=== PATIENT | female | born 1970 | race Caucasian/White ===

== ENCOUNTER → 2023-08-26 16:05 | Outpatient (REF) | payer OTHER, SELFPAY | LOC: WDC 16:05 | PROVIDERS: ATTENDING PHYSICIAN Obstetrics & Gynecology; FAMILY PHYSICIAN Family Medicine | DX: Z12.31 Encounter for screening mammogram for malignant neoplasm of breast (principal) | CPT/HCPCS: 77063; 77067 ==

== ENCOUNTER → 2024-01-26 13:00 | Outpatient (REF) | payer OTHER, SELFPAY | LOC: HWRAD 13:00 | PROVIDERS: ATTENDING PHYSICIAN Obstetrics & Gynecology; FAMILY PHYSICIAN Family Medicine | DX: N95.0 Postmenopausal bleeding (principal) | CPT/HCPCS: 76830; 76856 ==

== ENCOUNTER → 2024-02-01 08:42 | Outpatient (REF) | payer SELFPAY | LOC: HWRAD 08:42 | PROVIDERS: ATTENDING PHYSICIAN Internal Medicine Cardiovascular Disease; FAMILY PHYSICIAN Family Medicine | DX: E78.2 Mixed hyperlipidemia (principal) | CPT/HCPCS: 75571 ==

== ENCOUNTER 2024-02-22 06:27 | Day surgery (SDC) | payer OTHER, SELFPAY ==
[2024-02-18 11:10] LABS: % Basophils 0.4 % (0-2); % Eosinophils 1.1 % (0-6); % Immature Granulocytes 0.2 % (0-0.5); % Lymphocytes 34.6 % (20.5-51.1); % Monocytes 7.5 % (1.7-9.3); % Neutrophils 56.2 % (42.2-75.2); Absolute Eosinophils 0.1 10^3/uL (0-0.7); Absolute Monocytes 0.4 10^3/uL (0.1-0.6); Absolute Neutrophils 3.2 10^3/uL (1.4-6.5); Hematocrit 40.1 % (37.0-47.0); Hemoglobin 13.6 g/dL (12.0-16.0); Mean Corp Hgb Conc. 33.9 g/dL (33.0-37.0); Mean Corpuscular Hgb 32.8 pg (27.0-31.0); Mean Corpuscular Volume 96.6 fL (81.0-99.0); Mean Platelet Volume 10.8 fL (7.4-10.4); Nucleated Red Blood Cells % 0 %; Platelet Count 270 10^3/uL (130-400); Red Blood Cell Count 4.15 10^6/uL (4.20-5.40); Red Cell Dist. Width 12.1 % (11.5-14.5); White Blood Cell Count 5.6 10^3/uL (4.8-10.8)
[2024-02-18 11:22] LABS: APTT 28.2 Sec (23.4-35.0); INR 0.97; PT 12.9 Sec (11.4-14.6)
[2024-02-18 12:35] VITALS: BMI 22.8
[2024-02-22] VITALS (9 sets, daily range): BP systolic 95–141; BP diastolic 47–69; BMI 22.8
== END 2024-02-22 11:12 | disposition home or self-care (01) ==
LOC: SDS 06:27
PROVIDERS: ATTENDING PHYSICIAN Obstetrics & Gynecology; FAMILY PHYSICIAN Family Medicine
DX: N84.0 Polyp of corpus uteri (principal); N95.0 Postmenopausal bleeding
CPT/HCPCS: 58558; 88305; 36415; 85025; 85610; 85730; 87070

== ENCOUNTER → 2024-08-04 07:36 | Outpatient (REF) | payer OTHER, SELFPAY | LOC: RCS 07:36 | PROVIDERS: ATTENDING PHYSICIAN Internal Medicine Cardiovascular Disease; FAMILY PHYSICIAN Family Medicine | DX: R06.09 Other forms of dyspnea (principal) | CPT/HCPCS: 93017 ==

== ENCOUNTER → 2024-08-08 13:42 | Outpatient (REF) | payer OTHER, SELFPAY | LOC: HWRCS 13:42 | PROVIDERS: ATTENDING PHYSICIAN Internal Medicine Cardiovascular Disease; FAMILY PHYSICIAN Family Medicine | DX: R06.09 Other forms of dyspnea (principal) | CPT/HCPCS: 93306 ==

== ENCOUNTER → 2024-08-29 16:21 | Outpatient (REF) | payer OTHER, SELFPAY | LOC: WDC 16:21 | PROVIDERS: ATTENDING PHYSICIAN Obstetrics & Gynecology; FAMILY PHYSICIAN Family Medicine | DX: Z12.31 Encounter for screening mammogram for malignant neoplasm of breast (principal) | CPT/HCPCS: 77063; 77067 ==

== ENCOUNTER 2024-09-08 13:10 | Emergency (ER) | payer OTHER, SELFPAY ==
[2024-09-08 13:29] VITALS: BP 102/58
[2024-09-08 13:52] LABS: % Basophils 0.1 % (0-2); % Eosinophils 0.1 % (0-6); % Immature Granulocytes 0.3 % (0-0.5); % Lymphocytes 7.2 % (20.5-51.1); % Monocytes 1.9 % (1.7-9.3); % Neutrophils 90.4 % (42.2-75.2); Absolute Lymphocytes 0.8 10^3/uL (1.2-3.4); Absolute Monocytes 0.2 10^3/uL (0.1-0.6); Absolute Neutrophils 10.4 10^3/uL (1.4-6.5); Hematocrit 40.6 % (37.0-47.0); Hemoglobin 13.7 g/dL (12.0-16.0); Mean Corp Hgb Conc. 33.7 g/dL (33.0-37.0); Mean Corpuscular Hgb 31.1 pg (27.0-31.0); Mean Corpuscular Volume 92.3 fL (81.0-99.0); Mean Platelet Volume 10.6 fL (7.4-10.4); Nucleated Red Blood Cells % 0 %; Platelet Count 268 10^3/uL (130-400); Red Cell Dist. Width 12.5 % (11.5-14.5); White Blood Cell Count 11.5 10^3/uL (4.8-10.8)
[2024-09-08 14:05] LABS: ALT (SGPT) 38 U/L (0-35); AST (SGOT) 47 U/L (14-36); Albumin 4.8 g/dl (3.5-5.0); Alkaline Phosphatase 70 U/L (38-126); Blood Urea Nitrogen 20 mg/dl (7-17); Calcium 9.9 mg/dl (8.4-10.2); Carbon Dioxide 28 mmol/L (22-30); Chloride 103 mmol/L (98-107); Glucose 116 mg/dl (70-99); Potassium 4.1 mmol/L (3.5-5.1); Sodium 141 mmol/L (135-145); Total Bilirubin 0.5 mg/dl (0.2-1.3); Total Protein 7.9 g/dl (6.3-8.2); eGFR > 60.00
[2024-09-08 14:10] LABS: Urine Albumin 1+ (Neg - Trace); Urine Bilirubin Negative (Negative); Urine Character Clear (Clear); Urine Color Yellow; Urine Glucose Negative (Negative); Urine Ketone 2+ (Negative); Urine Leukocyte Negative (Negative); Urine Nitrite Negative (Negative); Urine Occult Blood 4+ (Negative); Urine Specific Gravity 1.015 (<1.030); Urine Urobilinogen Negative (Neg - 1+)
[2024-09-08 14:24] LABS: Urine Squamous Cell 26-30 /LPF (Few)
[2024-09-08 14:25] LABS: Urine Bacteria Few (Negative); Urine Red Blood Cell 40-50 /HPF (0-2); Urine White Cell 0-2 /HPF (0-5)
--- NOTE | 2024-09-08 16:57 | ED.GENMED ---
History of Present Illness
General
Chief Complaint: Urinary Symptoms
Source: patient
Exam Limitations: none
Time Seen by Provider: 09/08/24 16:19
History of Present Illness
History of Present Illness:
54yoF with a history of hyperlipidemia presenting for evaluation of left flank pain. Symptoms began this morning when she woke up. She reports severe stabbing pain in her left flank which radiates to the LLQ. Pain is coming in waves. She also
reports nausea and vomited earlier today. She is having the constant urge to urinate but denies any dysuria. Pain has actually improved and is currently mild. She was seen by her PCP earlier today due to her symptoms. She was found to have
hematuria and told to go to the ED for evaluation. She is otherwise asymptomatic and denies any fevers. No prior history of kidney stones.
Past History
Past History
ED Past Medical History: Psychiatric (anxiety)
ED Past Surgical History: None
Social History
Tobacco: Non-smoker
Personal:
Living: with family
Employment: Employed (therapist at [employer])
Phy Exam
General Physical Exam
General Presentation: well appearing and no apparent distress
General age: appears stated age
General Skin: warm and dry
General Habitus: normal
General Mental: alert
ENT Exam
ENT Exam: normocephalic
Pulmonary Exam
Pulmonary Exam: no respiratory distress
Gastrointestinal Exam
Gastrointestinal Exam: non tender, soft, non distended and other (+L CVA tenderness. No anterior abdominal tenderness. )
Neurological Exam
Neurological Exam: alert
Mani Coma Scale
Eye Opening: Spontaneous
Verbal Response: Oriented
Motor Response: Obeys Commands
GCS Total Score: 15
Skin Exam
Skin Exam: normal color and warm/dry
Psychiatric Exam
Psychiatric Exam: normal mood/affect
Course
Orders/Labs/Results
Orders:
Orders
09/08/24 13:41
Complete Blood Count/With Diff Urgent
Comprehensive Metabolic Panel Urgent
Urinalysis Reflex To Culture Urgent
Date Specimen was Collected: 09/08/24
Time Specimen was Collected: 13:32
Urine Microscopic Reflex Cult Urgent
09/08/24 16:48
CT Abd/pel Without Iv Or Oral Urgent
Comment:
Reason For Exam: L flank pain, LLQ pain, hematuria
0.9% Sodium Chloride 1000 ml [Nss] 1,000 ml IV BOLUS
Abnormal Lab Results
09/08/24
13:41
WBC 11.5 H 10^3/uL
(4.8-10.8)
MCH 31.1 H pg
(27.0-31.0)
MPV 10.6 H fL
(7.4-10.4)
Absolute Neuts (auto) 10.4 H 10^3/uL
(1.4-6.5)
Absolute Lymphs (auto) 0.8 L 10^3/uL
(1.2-3.4)
Neutrophils % 90.4 H %
(42.2-75.2)
Lymphocytes % 7.2 L %
(20.5-51.1)
BUN 20 H mg/dl
(7-17)
Glucose 116 H mg/dl
(70-99)
AST 47 H U/L
(14-36)
ALT 38 H U/L
(0-35)
Urine Ketones 2+ A
(Negative)
Ur Occult Blood Reflex 4+ A
(Negative)
Urine RBC 40-50 A /HPF
(0-2)
Urine Bacteria (Reflex) Few A
(Negative)
Urine Albumin (Reflex) 1+ A
(Neg - Trace)
09/08/24 13:41
09/08/24 13:41
Vital Signs
Initial and Last Documented VS:
Initial Vital Signs
Temp Pulse Resp BP Pulse Ox
97.8 F 50 16 102/58 100
09/08/24 13:29 09/08/24 13:29 09/08/24 13:29 09/08/24 13:29 09/08/24 13:29
Last Documented Vital Signs
Temp Pulse Resp BP Pulse Ox
97.8 F 54 16 133/70 100
09/08/24 13:29 09/08/24 18:48 09/08/24 18:48 09/08/24 18:48 09/08/24 18:48
MDM/Problems Addressed
Differential Diagnosis Includes:
54yoF here with L flank pain that began this morning. Radiates to the LLQ. Comes in waves. Associated with n/v. Now feeling much better. VSS. She is well-appearing in no acute distress. Left CVA tenderness on exam. Differential diagnosis includes
but is not limited to: Kidney stone, pyelonephritis, UTI, diverticulitis
Initial ED plan: Labs obtained in triage. Mild leukocytosis noted with a white count of 11.5 which may be reactive secondary to vomiting. Renal function normal. UA with microscopic hematuria but no signs of infection. Will check CT without
contrast. IV fluid bolus.
*Critical Care Note
Total Time (30-74mins, 75-104mins- exclusive of procedures): Not Applicable
Update Note
Update Note:
CT shows mild asymmetric distention of the left renal pelvis and ureter without obstructing calculus. Mild left perinephric inflammation noted. Patient remains pain-free on reassessment. Suspect passed kidney stone. She was advised to stay
hydrated and follow-up with urology. ED return precautions reviewed including worsening pain or fevers. Patient in agreement with plan and was discharged in stable condition.
ED Attending Note
-
Portions of this chart may have been created with voice recognition software.� Occasional wrong word or��sound alike� substitutions may have occurred due to the inherent limitations of voice recognition software.
Discharge Plan
Departure
Patient Disposition: Home (Routine Discharge)
Date of Disposition: 09/08/24
Time of Disposition: 18:35
Patient with high blood pressure during this ER visit?: No
Discharge Problem:
Left flank pain, Microscopic hematuria
Instructions: Flank pain - ED discharge instructions
Prescriptions:
No Action
calcium carbonate 500 mg calcium (1,250 mg) Tablet
500 mg PO DAILY
fluoxetine 60 mg Tablet
60 mg PO DAILY
Medical Cannabis
1 dose inhalation PRN PRN (Reason: back pain)
rosuvastatin 20 mg Tablet
20 mg PO NOON
Fish Oil
1 cap PO DAILY
Referrals:
Leo Perez MD [Active] -
Del Cain MD [Family Provider] -
Activity Restrictions/Additional Instructions:
Based on your test results, it looks like you passed a kidney stone.
Drink plenty of fluids and stay hydrated. Take ibuprofen as needed for pain.
Please follow-up with your family doctor and urology. Return to the ER with any worsening symptoms including fevers or severe pain.
Interventions
Interventions:
*Risk Screen - Suicide Last Done: 09/08/24 13:29
*General Assessment Last Done: 09/08/24 13:29
*Neglect/Abuse Screening Last Done: 09/08/24 17:20
*ED- Fall Risk Assessment Last Done: 09/08/24 17:20
*ED COVID-19 Vaccine History Last Done: 09/08/24 13:29
*Nursing Disposition Last Done: 09/08/24 18:48
ED-Female Genitourinary Assessment Last Done: 09/08/24 17:20
Discharge Date and Time
Discharge Date/Time: 09/08/24 18:49
Print Language: BENGALI
[2024-09-08 17:20] VITALS: BMI 23.6
[2024-09-08] MEDS: NSS 1000 IV (17:20)
[2024-09-08 18:48] VITALS: BP 133/70
== END 2024-09-08 18:49 | disposition home or self-care (01) ==
LOC: EMR 13:10
PROVIDERS: Emergency Medicine; EMERGENCY PHYSICIAN Emergency Medicine; FAMILY PHYSICIAN Family Medicine
DX: R10.9 Unspecified abdominal pain (principal); R31.29 Other microscopic hematuria; E78.00 Pure hypercholesterolemia, unspecified; F41.9 Anxiety disorder, unspecified
CPT/HCPCS: 99284; 96360; 74176; 80053; 81003; 81015; 85025

== ENCOUNTER → 2024-12-22 09:42 | Outpatient (REF) | payer OTHER, SELFPAY | LOC: RAD 09:42 | PROVIDERS: ATTENDING PHYSICIAN Surgery Surgical Oncology; FAMILY PHYSICIAN Family Medicine | DX: D37.3 Neoplasm of uncertain behavior of appendix (principal) | CPT/HCPCS: 74177; Q9967 ==